=== PATIENT | female | born 1950 | race Two or more races ===

== ENCOUNTER 2020-10-22 20:37 | Emergency (ER) | payer OTHER, MEDICAID ==
[~2020-10-22] VITALS: Ht 149.9 cm; Wt 68.0 kg
[2020-10-22 20:38] VITALS: BP 118/87
--- NOTE | 2020-10-22 20:46 | NUR ---
Pt taken to lobby via w/c. VSS . No acute distress noted.
--- NOTE | 2020-10-22 21:15 | NUR ---
PT TAKEN TO RAD VIA W/C
--- NOTE | 2020-10-22 21:24 | NUR ---
PT RETURNED TO LOBBY AFTER CXR TO A/W BED
--- NOTE | 2020-10-22 21:40 | NUR ---
BIB WHEELCHAIR TO ER BED 8
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
[2020-10-22 21:49] LABS: BASOPHILS # (AUTO) 0.1 K/uL (0.00-0.22); BASOPHILS % (AUTO) 0.8 % (0.0-2.0); EOSINOPHILS % (AUTO) 0.5 % (0.0-4.0); HEMATOCRIT 43.8 % (36-48); HEMOGLOBIN 14.5 g/dL (12.0-16.0); LYMPHOCYTES # (AUTO) 1.5 K/uL (2.5-16.5); LYMPHOCYTES % (AUTO) 19.9 % (20.5-51.1); MEAN CORPUSCULAR HEMOGLOBIN 28 pg (27-31); MEAN CORPUSCULAR HGB CONC 33 g/dL (33-37); MEAN CORPUSCULAR VOLUME 85.7 fL (80-94); MONOCYTES # (AUTO) 0.4 K/uL (0.8-1.0); MONOCYTES % (AUTO) 5.8 % (1.7-9.3); NEUTROPHILS # (AUTO) 5.6 K/uL (1.8-7.7); PLATELET COUNT (AUTO) 231 K/uL (140-450); RED CELL DISTRIBUTION WIDTH 14.9 % (11.6-13.7); WHITE BLOOD COUNT (AUTO) 7.7 K/uL (4.8-10.8)
[2020-10-22 21:55] LABS: APPEARANCE,URINE HAZY (CLEAR); BILIRUBIN,URINE NEGATIVE (NEGATIVE); BLOOD, URINE NEGATIVE (NEGATIVE); COLOR,URINE YELLOW (YELLOW); LEUKOCYTE ESTERASE ,URINE TRACE (NEGATIVE); NITRITE, URINE POSITIVE (NEGATIVE); PH,URINE 6.5 (5.0-9.0); UGLUCOSE NEGATIVE (NEGATIVE)
[2020-10-22 21:57] LABS: RBC,URINE 0-5 /HPF (0-5)
[2020-10-22 22:03] LABS: ALBUMIN 3.7 g/dL (3.4-5.0); ANION GAP 14.4 (8-16); CARBON DIOXIDE 23.6 mmol/L (21-32); CREATININE 0.7 mg/dL (0.6-1.3); TOTAL BILIRUBIN 0.5 mg/dL (0.0-1.0)
[2020-10-22 22:14] LABS: THYROID STIMULATING HORMONE 1.06 uIU/mL (0.34-3.74)
[2020-10-22] MEDS ORDERED: CEPH500C16 PO (22:47)
[2020-10-22 23:03] VITALS: BP 133/77
--- NOTE | 2020-10-22 23:03 | NUR ---
READY FOR DISCHARGE. IS ABLE TO AMBULATE WITHOUT ASSIST AND HAS STEADY GAITPatient discharged with v/s stable. Written and verbal after care instructions given and explained. Patient alert, oriented and verbalized understanding of instructions. Ambulatory with steady gait. All questions addressed prior to discharge. ID band removed. Patient advised to follow up with PMD. Rx of KEFLEX given. Patient educated on indication of medication including possible reaction and side effects. Opportunity to ask questions provided and answered.
== END 2020-10-22 23:20 | disposition home or self-care (01) ==
LOC: MED 20:37
DX: R53.1 Weakness (principal); F15.10 Other stimulant abuse, uncomplicated
CPT/HCPCS: 36415; 71045; 80053; 81001; 83690; 83880; 84443; 84484; 85025; 87086; 93005; 99285

== ENCOUNTER 2020-12-22 23:23 | Emergency (ER) | payer OTHER, MEDICAID ==
[~2020-12-22] VITALS: Ht 149.9 cm; Wt 73.0 kg
[~2020-12-22 23:23] MED LIST: CEPH500C16 PO
[2020-12-22 23:30] VITALS: BP 144/88
--- NOTE | 2020-12-22 23:40 | NUR ---
PT AMBULATED TO BED 5 WITH STEADY GAIT.
--- NOTE | 2020-12-22 23:50 | NUR ---
RECEIVED IN BED 5 WITH C/O RLE PAIN S/P PLACEMENT OF SUTURES TO RIGHT CALF 3 WEEKS AGO. PT DID NOT HACE SUTURES REMOVED. SUTURE LINE RED AND SWOLLEN WITH SLIGHT WARMTH TO TOUCH.
--- NOTE | 2020-12-23 00:05 | NUR ---
ATTEMPTING TO REMOVE SUTURES. PT NOT TOLERATING WELL DUE TO PAIN.
[2020-12-23] MEDS ORDERED: cefTRIAXone 1,000 MG in LIDOCAINE MPF 1% 2.1 ML IM ONE (00:10)
[2020-12-23] MEDS ORDERED: HYDROcodone/APAP 5/325 MG 1 TAB TAB PO ONE (00:10)
[2020-12-23] MEDS ORDERED: CEPH-588 PO (00:16)
[2020-12-23] MEDS ORDERED: IBUP-2218 PO (00:16)
[2020-12-23] MEDS ORDERED: KETO120S5 TP (00:16)
[2020-12-23] MEDS ORDERED: cefTRIAXone 1,000 MG VIAL ONE (00:24)
[2020-12-23] MEDS ORDERED: LIDOCAINE MPF 1% 5 ML ONE (00:25)
[2020-12-23] MEDS ORDERED: BACITRACIN OINT 500 UNITS/GM PKT TP ONE (01:05)
[2020-12-23 01:37] VITALS: BP 144/88
--- NOTE | 2020-12-23 01:37 | NUR ---
Patient discharged with v/s stable. Written and verbal after care instructions given and explained. Patient alert, oriented and verbalized understanding of instructions. Ambulatory with steady gait. All questions addressed prior to discharge. ID band removed. Patient advised to follow up with PMD. Rx of KEFLEX, IBUPROFEN, AND KETOCONAZOLE given. Patient educated on indication of medication including possible reaction and side effects. Opportunity to ask questions provided and answered.
== END 2020-12-23 01:37 | disposition home or self-care (01) ==
LOC: MED 23:23
DX: L03.115 Cellulitis of right lower limb (principal); Z79.899 Other long term (current) drug therapy
CPT/HCPCS: 96372; 99283; J0696; J2001

== ENCOUNTER 2021-04-15 15:22 | Emergency (ER) | payer OTHER, MEDICAID ==
[~2021-04-15] VITALS: Ht 149.9 cm; Wt 65.8 kg
[~2021-04-15 15:22] MED LIST changes: +CEPH-588 PO; -CEPH500C16 PO; +IBUP-2218 PO; +KETO120S5 TP
[2021-04-15 15:33] VITALS: BP 125/77
--- NOTE | 2021-04-15 15:40 | NUR ---
DR OLMOS EXAMINING PT
[2021-04-15] MEDS ORDERED: KETOROLAC 30 MG/ML VIAL IM ONE (15:45)
--- NOTE | 2021-04-15 15:58 | NUR ---
PT TAKEN TO RAD VIA JULIANO
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
--- NOTE | 2021-04-15 16:18 | NUR ---
PT BACK FROM RAD
[2021-04-15] MEDS ORDERED: IBUP-2213 PO (17:18)
[2021-04-15] MEDS ORDERED: ACET-10509 PO (17:18)
[2021-04-15 17:38] VITALS: BP 125/77
--- NOTE | 2021-04-15 17:38 | NUR ---
Patient discharged with v/s stable. Written and verbal after care instructions given and explained. Patient alert, oriented and verbalized understanding of instructions. Ambulatory with steady gait. All questions addressed prior to discharge. ID band removed. Patient advised to follow up with PMD. Rx of IBUPROFEN AND TYLENOL EXTRA STRENGTH given. Patient educated on indication of medication including possible reaction and side effects. Opportunity to ask questions provided and answered.
== END 2021-04-15 17:38 | disposition home or self-care (01) ==
LOC: MED 15:22
DX: S80.01XA Contusion of right knee, initial encounter (principal); S70.01XA Contusion of right hip, initial encounter; W19.XXXA Unspecified fall, initial encounter; Y93.89 Activity, other specified; Y92.512 Supermarket, store or market as the place of occurrence of the external cause; Y99.8 Other external cause status
CPT/HCPCS: 73502; 73560; 96372; 99284; J1885

== ENCOUNTER 2022-05-13 06:36 | Emergency (ER) | payer OTHER, MEDICAID ==
[~2022-05-13] VITALS: Ht 149.9 cm; Wt 72.7 kg
[~2022-05-13 06:36] MED LIST changes: +ACET-10509 PO; +IBUP-2213 PO
[2022-05-13 07:11] VITALS: BP 129/68
--- NOTE | 2022-05-13 07:20 | NUR ---
BIB SELF C/O INTERMITENT RLQ ABDOMINAL PAIN , URINARY BURNING , DIZZINESS, HEADACHE X 3 MONTHS.PMH:DENIES.
--- NOTE | 2022-05-13 07:25 | NUR ---
Patient being evaluated by DR WELLER at bedside.
[2022-05-13] MEDS ORDERED: NACL 0.9% 1,000 ML IV ONE (07:30)
[2022-05-13] MEDS ORDERED: KETOROLAC 30 MG/ML VIAL IVP ONE (07:30)
--- NOTE | 2022-05-13 07:30 | NUR ---
PATIENT AMBULATED TO BED 10.
--- NOTE | 2022-05-13 07:48 | NUR ---
blood drawn from iv and given to ave menchaca
--- NOTE | 2022-05-13 07:54 | NUR ---
pt wheelchair assisted to ct
[2022-05-13 08:22] LABS: APPEARANCE,URINE CLOUDY (CLEAR); BILIRUBIN,URINE NEGATIVE (NEGATIVE); BLOOD, URINE TRACE-I (NEGATIVE); COLOR,URINE YELLOW (YELLOW); LEUKOCYTE ESTERASE ,URINE 1+ (NEGATIVE); NITRITE, URINE NEGATIVE (NEGATIVE); UGLUCOSE NEGATIVE (NEGATIVE)
[2022-05-13 08:24] LABS: BASOPHILS % (AUTO) 0.9 % (0.0-2.0); EOSINOPHILS # (AUTO) 0.2 K/uL (0-0.4); EOSINOPHILS % (AUTO) 2.9 % (0.0-4.0); HEMATOCRIT 39.7 % (36-48); HEMOGLOBIN 13.2 g/dL (12.0-16.0); LYMPHOCYTES # (AUTO) 2.3 K/uL (2.5-16.5); LYMPHOCYTES % (AUTO) 42.3 % (20.5-51.1); MEAN CORPUSCULAR HEMOGLOBIN 29 pg (27-31); MEAN CORPUSCULAR HGB CONC 33 g/dL (33-37); MEAN CORPUSCULAR VOLUME 86.3 fL (80-94); MONOCYTES # (AUTO) 0.5 K/uL (0.8-1.0); MONOCYTES % (AUTO) 9.3 % (1.7-9.3); NEUTROPHILS # (AUTO) 2.5 K/uL (1.8-7.7); NEUTROPHILS % (AUTO) 44.6 % (42.2-75.2); PLATELET COUNT (AUTO) 240 K/uL (140-450); RED CELL DISTRIBUTION WIDTH 14.6 % (11.6-13.7); WHITE BLOOD COUNT (AUTO) 5.5 K/uL (4.8-10.8)
[2022-05-13 08:42] LABS: ANION GAP 12.1 (8-16); CARBON DIOXIDE 25.7 mmol/L (21-32); CREATININE 0.7 mg/dL (0.6-1.3); POTASSIUM 3.8 mmol/L (3.5-5.1); TOTAL BILIRUBIN 0.2 mg/dL (0.0-1.0)
[2022-05-13 08:52] LABS: OTHER CASTS, URINE None Seen /LPF (None Seen); YEAST,URINE Few /HPF (None Seen)
[2022-05-13] MEDS ORDERED: CEPH-588 PO (09:13)
[2022-05-13] MEDS ORDERED: ACET-10509 PO (09:13)
[2022-05-13] MEDS ORDERED: PHEN95TA24 PO (09:13)
--- NOTE | 2022-05-13 09:59 | NUR ---
Patient discharged with v/s stable. Written and verbal after care instructions given and explained. Patient alert, oriented and verbalized understanding of instructions. Ambulatory with steady gait. All questions addressed prior to discharge. ID band removed. Patient advised to follow up with PMD. Rx of keflex, phenazopyridine, tylenol (sent) given. Patient educated on indication of medication including possible reaction and side effects. Opportunity to ask questions provided and answered. ct and labs given, work note given
[2022-05-13 10:01] VITALS: BP 129/68
== END 2022-05-13 10:01 | disposition home or self-care (01) ==
LOC: MED 06:36
DX: N39.0 Urinary tract infection, site not specified (principal)
CPT/HCPCS: 36415; 74176; 80053; 81001; 85025; 87086; 96361; 96374; 99284; J1885; J7030

== ENCOUNTER 2022-07-07 05:18 | Inpatient (IN) | payer OTHER, MEDICAID ==
[~2022-07-07] VITALS: Ht 149.9 cm; Wt 69.9 kg
[~2022-07-07 05:18] MED LIST changes: +PHEN95TA24 PO
[2022-07-07 05:20] VITALS: BP 145/90
[2022-07-07] MEDS ORDERED: MORPHINE SULFATE 4 MG/ML SYR IVP ONE (06:25)
[2022-07-07] MEDS ORDERED: NACL 0.9% 1,000 ML IV ONE (06:25)
[2022-07-07] MEDS ORDERED: cefTRIAXone 1,000 MG VIAL ONE (06:34)
[2022-07-07 07:25] LABS: ALBUMIN 3.3 g/dL (3.4-5.0); CARBON DIOXIDE 25.4 mmol/L (21-32); CREATININE 0.7 mg/dL (0.6-1.3); POTASSIUM 3.4 mmol/L (3.5-5.1); TOTAL BILIRUBIN 0.4 mg/dL (0.0-1.0)
[2022-07-07 07:53] LABS: BASOPHILS # (AUTO) 0.1 K/uL (0.00-0.22); BASOPHILS % (AUTO) 0.7 % (0.0-2.0); EOSINOPHILS # (AUTO) 0.1 K/uL (0-0.4); EOSINOPHILS % (AUTO) 1.1 % (0.0-4.0); HEMATOCRIT 38.8 % (36-48); LYMPHOCYTES # (AUTO) 2.1 K/uL (2.5-16.5); LYMPHOCYTES % (AUTO) 26.4 % (20.5-51.1); MEAN CORPUSCULAR HEMOGLOBIN 29 pg (27-31); MEAN CORPUSCULAR HGB CONC 33 g/dL (33-37); MEAN CORPUSCULAR VOLUME 85.9 fL (80-94); MONOCYTES # (AUTO) 0.5 K/uL (0.8-1.0); MONOCYTES % (AUTO) 6.8 % (1.7-9.3); NEUTROPHILS # (AUTO) 5.2 K/uL (1.8-7.7); PLATELET COUNT (AUTO) 259 K/uL (140-450); RED BLOOD CELL COUNT(AUTO) 4.52 MIL/uL (4.20-5.40); RED CELL DISTRIBUTION WIDTH 14.5 % (11.6-13.7)
[2022-07-07] MEDS ORDERED: ONDANSETRON 4 MG/2 ML VIAL IVP PRN (10:00)
[2022-07-07] MEDS ORDERED: DOCUSATE SODIUM 100 MG GELCAP PO PRN (10:00)
[2022-07-07] MEDS ORDERED: POTASSIUM CHLORIDE 10 MEQ TABER PO PRN (10:00)
[2022-07-07] MEDS ORDERED: MAG SULF 2000 MG/WATER PREMIX 50 ML IV PRN (10:00)
[2022-07-07] MEDS ORDERED: ZOLPIDEM 10 MG TAB PO PRN (10:00)
[2022-07-07] MEDS ORDERED: LORazepam 2 MG/ML VIAL IVP PRN (10:00)
[2022-07-07] MEDS ORDERED: ACETAMINOPHEN 325 MG TAB PO PRN (10:00)
[2022-07-07] MEDS: MORPHINE SULFATE 2 MG/ML SYR IVP PRN ×2 (10:33→17:32)
[2022-07-07] MEDS ORDERED: AMPICILLIN/SULBACTAM 1.5 GM in NACL 0.9% 50 ML IV SCH (12:00)
[2022-07-07] MEDS ORDERED: AMPICILLIN/SULBACTAM 1.5 GM VIAL ONE ×2 (12:46→18:05)
[2022-07-07] MEDS: AMPICILLIN/SULBACTAM 1.5 GM in NACL 0.9% 50 ML IV SCH ×2 (12:47→18:00)
[2022-07-07] MEDS ORDERED: VANCOMYCIN PER PHARMACY MC PRN (17:15)
[2022-07-07] MEDS ORDERED: VANCOMYCIN 1GM/DEXT 5% PREMIX 200 ML IV SCH (18:00)
[2022-07-08] MEDS ORDERED: AMPICILLIN/SULBACTAM 1.5 GM VIAL ONE ×4 (00:28→18:10)
[2022-07-08] MEDS ORDERED: ZOLPIDEM 5 MG TAB ONE (00:29)
[2022-07-08] MEDS: AMPICILLIN/SULBACTAM 1.5 GM in NACL 0.9% 50 ML IV SCH ×5 (06:36→18:21)
[2022-07-08 07:32] LABS: BASOPHILS # (AUTO) 0.1 K/uL (0.00-0.22); BASOPHILS % (AUTO) 0.6 % (0.0-2.0); EOSINOPHILS # (AUTO) 0.1 K/uL (0-0.4); EOSINOPHILS % (AUTO) 0.7 % (0.0-4.0); HEMATOCRIT 39.9 % (36-48); HEMOGLOBIN 13.1 g/dL (12.0-16.0); LYMPHOCYTES # (AUTO) 2.1 K/uL (2.5-16.5); LYMPHOCYTES % (AUTO) 25.6 % (20.5-51.1); MEAN CORPUSCULAR HEMOGLOBIN 29 pg (27-31); MEAN CORPUSCULAR HGB CONC 33 g/dL (33-37); MEAN CORPUSCULAR VOLUME 86.9 fL (80-94); MONOCYTES # (AUTO) 0.7 K/uL (0.8-1.0); MONOCYTES % (AUTO) 8.8 % (1.7-9.3); NEUTROPHILS # (AUTO) 5.4 K/uL (1.8-7.7); NEUTROPHILS % (AUTO) 64.3 % (42.2-75.2); PLATELET COUNT (AUTO) 236 K/uL (140-450); RED BLOOD CELL COUNT(AUTO) 4.59 MIL/uL (4.20-5.40); RED CELL DISTRIBUTION WIDTH 14.5 % (11.6-13.7); WHITE BLOOD COUNT (AUTO) 8.4 K/uL (4.8-10.8)
[2022-07-08 08:14] LABS: ANION GAP 10.6 (8-16); CARBON DIOXIDE 26.5 mmol/L (21-32); CREATININE 0.6 mg/dL (0.6-1.3); POTASSIUM 4.1 mmol/L (3.5-5.1)
[2022-07-08] MEDS: MORPHINE SULFATE 2 MG/ML SYR IVP PRN (20:28)
[2022-07-09] MEDS ORDERED: AMPICILLIN/SULBACTAM 1.5 GM VIAL ONE ×2 (00:23→06:08)
[2022-07-09] MEDS: AMPICILLIN/SULBACTAM 1.5 GM in NACL 0.9% 50 ML IV SCH ×4 (00:28→17:05)
[2022-07-09] MEDS: MORPHINE SULFATE 2 MG/ML SYR IVP PRN ×3 (03:57→18:36)
[2022-07-09 06:21] LABS: BASOPHILS # (AUTO) 0.1 K/uL (0.00-0.22); BASOPHILS % (AUTO) 0.9 % (0.0-2.0); EOSINOPHILS # (AUTO) 0.1 K/uL (0-0.4); EOSINOPHILS % (AUTO) 0.8 % (0.0-4.0); HEMATOCRIT 39.2 % (36-48); HEMOGLOBIN 12.9 g/dL (12.0-16.0); LYMPHOCYTES # (AUTO) 2.7 K/uL (2.5-16.5); LYMPHOCYTES % (AUTO) 32.3 % (20.5-51.1); MEAN CORPUSCULAR HEMOGLOBIN 28 pg (27-31); MEAN CORPUSCULAR HGB CONC 33 g/dL (33-37); MEAN CORPUSCULAR VOLUME 86.4 fL (80-94); MONOCYTES # (AUTO) 0.8 K/uL (0.8-1.0); MONOCYTES % (AUTO) 9.7 % (1.7-9.3); NEUTROPHILS # (AUTO) 4.8 K/uL (1.8-7.7); NEUTROPHILS % (AUTO) 56.3 % (42.2-75.2); PLATELET COUNT (AUTO) 261 K/uL (140-450); RED BLOOD CELL COUNT(AUTO) 4.54 MIL/uL (4.20-5.40); RED CELL DISTRIBUTION WIDTH 14.4 % (11.6-13.7); WHITE BLOOD COUNT (AUTO) 8.5 K/uL (4.8-10.8)
[2022-07-09 07:47] LABS: ANION GAP 14.4 (8-16); CARBON DIOXIDE 26.9 mmol/L (21-32); CREATININE 0.6 mg/dL (0.6-1.3); POTASSIUM 4.3 mmol/L (3.5-5.1)
[2022-07-09 09:00] VITALS: BP 126/61
[2022-07-09] MEDS: VANCOMYCIN HCL 1.25 GM in DEXTROSE 5% 250 ML IV SCH (09:16)
[2022-07-09 17:00] VITALS: BP 117/59
[2022-07-09 20:00] VITALS: BP 96/54
[2022-07-10 04:00] VITALS: BP 102/67
[2022-07-10] MEDS: AMPICILLIN/SULBACTAM 1.5 GM in NACL 0.9% 50 ML IV SCH ×6 (06:05→23:20)
[2022-07-10 08:06] LABS: BASOPHILS # (AUTO) 0.1 K/uL (0.00-0.22); BASOPHILS % (AUTO) 0.7 % (0.0-2.0); EOSINOPHILS # (AUTO) 0.2 K/uL (0-0.4); EOSINOPHILS % (AUTO) 2.3 % (0.0-4.0); HEMATOCRIT 39.9 % (36-48); LYMPHOCYTES % (AUTO) 36.3 % (20.5-51.1); MEAN CORPUSCULAR HEMOGLOBIN 28 pg (27-31); MEAN CORPUSCULAR HGB CONC 33 g/dL (33-37); MEAN CORPUSCULAR VOLUME 87.2 fL (80-94); MONOCYTES # (AUTO) 0.8 K/uL (0.8-1.0); MONOCYTES % (AUTO) 10.2 % (1.7-9.3); NEUTROPHILS # (AUTO) 4.1 K/uL (1.8-7.7); NEUTROPHILS % (AUTO) 50.5 % (42.2-75.2); PLATELET COUNT (AUTO) 275 K/uL (140-450); RED BLOOD CELL COUNT(AUTO) 4.58 MIL/uL (4.20-5.40); RED CELL DISTRIBUTION WIDTH 14.5 % (11.6-13.7); WHITE BLOOD COUNT (AUTO) 8.2 K/uL (4.8-10.8)
[2022-07-10] MEDS: VANCOMYCIN HCL 1.25 GM in DEXTROSE 5% 250 ML IV SCH (08:36)
[2022-07-10 08:42] LABS: ANION GAP 11.8 (8-16); CARBON DIOXIDE 29.6 mmol/L (21-32); CREATININE 0.7 mg/dL (0.6-1.3); POTASSIUM 4.4 mmol/L (3.5-5.1)
[2022-07-10] MEDS ORDERED: IBUP-2218 PO (11:06)
[2022-07-10] MEDS ORDERED: VANC50SO PO (11:06)
[2022-07-10] MEDS ORDERED: AMPI1PDS18 IV (11:06)
[2022-07-10 12:00] VITALS: BP 112/67
[2022-07-10] MEDS: MORPHINE SULFATE 2 MG/ML SYR IVP PRN ×2 (14:23→21:41)
[2022-07-10 21:16] VITALS: BP 110/75
[2022-07-11] MEDS: AMPICILLIN/SULBACTAM 1.5 GM in NACL 0.9% 50 ML IV SCH ×3 (04:47→17:03)
[2022-07-11] MEDS: MORPHINE SULFATE 2 MG/ML SYR IVP PRN ×2 (05:12→11:04)
[2022-07-11 07:05] LABS: BASOPHILS # (AUTO) 0.1 K/uL (0.00-0.22); EOSINOPHILS # (AUTO) 0.1 K/uL (0-0.4); EOSINOPHILS % (AUTO) 1.6 % (0.0-4.0); HEMATOCRIT 41.4 % (36-48); HEMOGLOBIN 13.4 g/dL (12.0-16.0); LYMPHOCYTES # (AUTO) 2.8 K/uL (2.5-16.5); LYMPHOCYTES % (AUTO) 36.9 % (20.5-51.1); MEAN CORPUSCULAR HEMOGLOBIN 28 pg (27-31); MEAN CORPUSCULAR HGB CONC 32 g/dL (33-37); MEAN CORPUSCULAR VOLUME 86.7 fL (80-94); MONOCYTES # (AUTO) 0.6 K/uL (0.8-1.0); MONOCYTES % (AUTO) 7.7 % (1.7-9.3); NEUTROPHILS % (AUTO) 52.8 % (42.2-75.2); PLATELET COUNT (AUTO) 297 K/uL (140-450); RED BLOOD CELL COUNT(AUTO) 4.77 MIL/uL (4.20-5.40); RED CELL DISTRIBUTION WIDTH 14.6 % (11.6-13.7); WHITE BLOOD COUNT (AUTO) 7.5 K/uL (4.8-10.8)
[2022-07-11 07:09] LABS: ANION GAP 10.8 (8-16); CARBON DIOXIDE 27.5 mmol/L (21-32); CREATININE 0.7 mg/dL (0.6-1.3); POTASSIUM 4.3 mmol/L (3.5-5.1)
[2022-07-11 08:00] VITALS: BP 98/72
[2022-07-11] MEDS: VANCOMYCIN HCL 1.25 GM in DEXTROSE 5% 250 ML IV SCH (08:35)
[2022-07-11] MEDS ORDERED: MORPHINE SULFATE 2 MG/ML SYR IVP PRN ×2 (15:30→15:35)
[2022-07-11 16:00] VITALS: BP 137/81
[2022-07-11] MEDS ORDERED: VANCOMYCIN 1,000 MG in DEXTROSE 5% 250 ML IV SCH (19:00)
== END 2022-07-11 21:50 | disposition home or self-care (01) | DRG 603 ==
LOC: MED 05:18 → MTU 09:58
PROVIDERS: ADMIT Family Medicine; ATTEND Family Medicine
PROC: 05HC33Z Insertion of Infusion Device into Left Basilic Vein, Percutaneous Approach (ICD-10-PCS; principal; 2022-07-10)
DX: L03.113 Cellulitis of right upper limb (principal); E44.1 Mild protein-calorie malnutrition; E83.51 Hypocalcemia; Z20.822 Contact with and (suspected) exposure to COVID-19; E87.6 Hypokalemia; S61.451A Open bite of right hand, initial encounter; R74.01 Elevation of levels of liver transaminase levels; Z88.5 Allergy status to narcotic agent; W55.01XA Bitten by cat, initial encounter; Z68.31 Body mass index [BMI] 31.0-31.9, adult
CPT/HCPCS: 36415; 73130; 80048; 80053; 80202; 83605; 83735; 85025; 85651; 86140; 87040; 87081; 96365; 96375; 99291; J0295; J0696; J2270; J2405; J3370; J7060; Q0092

== ENCOUNTER 2022-12-09 08:30 | Emergency (ER) | payer OTHER, MEDICAID ==
[~2022-12-09] VITALS: Ht 149.9 cm; Wt 68.5 kg
[~2022-12-09 08:30] MED LIST changes: +AMPI1PDS18 IV; -CEPH-588 PO; -IBUP-2213 PO; -KETO120S5 TP; -PHEN95TA24 PO; +VANC50SO PO
[2022-12-09 08:41] VITALS: BP 139/75
--- NOTE | 2022-12-09 08:49 | NUR ---
RIGHT FLANK PAIN 8/ ACHING STARTED YESTERDAY MORNING, STATED SHE HAD THIS PROBLEM BEFORE, STATED IT COMES AND GOES UA: COLLECTED
--- NOTE | 2022-12-09 08:59 | NUR ---
AMBULATED TO BED IN NO DISTRESS.
--- NOTE | 2022-12-09 08:59 | NUR ---
The patient's care was reviewed and supervised by DARYN SUMMERS RN.
[2022-12-09 09:17] LABS: BILIRUBIN,URINE NEGATIVE (NEGATIVE); BLOOD, URINE TRACE-I (NEGATIVE); COLOR,URINE YELLOW (YELLOW); LEUKOCYTE ESTERASE ,URINE 3+ (NEGATIVE); NITRITE, URINE POSITIVE (NEGATIVE); UGLUCOSE NEGATIVE (NEGATIVE)
[2022-12-09 09:21] LABS: APPEARANCE,URINE SLIGHTLY HAZY (CLEAR)
[2022-12-09 09:25] LABS: BASOPHILS # (AUTO) 0.1 K/uL (0.00-0.22); BASOPHILS % (AUTO) 0.7 % (0.0-2.0); EOSINOPHILS # (AUTO) 0.1 K/uL (0-0.4); EOSINOPHILS % (AUTO) 1.3 % (0.0-4.0); HEMATOCRIT 42.5 % (36-48); HEMOGLOBIN 14.1 g/dL (12.0-16.0); LYMPHOCYTES # (AUTO) 2.8 K/uL (2.5-16.5); LYMPHOCYTES % (AUTO) 37.8 % (20.5-51.1); MEAN CORPUSCULAR HEMOGLOBIN 28 pg (27-31); MEAN CORPUSCULAR HGB CONC 33 g/dL (33-37); MEAN CORPUSCULAR VOLUME 83.3 fL (80-94); MONOCYTES # (AUTO) 0.5 K/uL (0.8-1.0); MONOCYTES % (AUTO) 6.7 % (1.7-9.3); NEUTROPHILS % (AUTO) 53.5 % (42.2-75.2); PLATELET COUNT (AUTO) 278 K/uL (140-450); WHITE BLOOD COUNT (AUTO) 7.4 K/uL (4.8-10.8)
--- NOTE | 2022-12-09 09:25 | NUR ---
Patient being evaluated by physician at bedside.
[2022-12-09 09:30] LABS: ALBUMIN 3.6 g/dL (3.4-5.0); ANION GAP 9.2 (8-16); CARBON DIOXIDE 27.5 mmol/L (21-32); CREATININE 0.7 mg/dL (0.6-1.3); POTASSIUM 3.7 mmol/L (3.5-5.1); TOTAL BILIRUBIN 0.5 mg/dL (0.0-1.0)
[2022-12-09] MEDS ORDERED: MORPHINE SULFATE 4 MG/ML SYR IM ONE (09:30)
[2022-12-09] MEDS ORDERED: ONDANSETRON 4 MG ODT PO ONE (09:30)
[2022-12-09] MEDS ORDERED: CEPH-588 PO (11:30)
[2022-12-09] MEDS ORDERED: ACET-10509 PO (11:30)
--- NOTE | 2022-12-09 11:42 | NUR ---
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
[2022-12-09 11:43] VITALS: BP 110/56
--- NOTE | 2022-12-09 11:43 | NUR ---
Patient discharged with v/s stable. Written and verbal after care instructions given. Patient alert, oriented and verbalized understanding of instructions. Ambulatory with steady gait. All questions addressed prior to discharge. ID band removed. Patient advised to follow up with PMD. Rx of Tylenol and Keflex given. Opportunity to ask questions provided and answered.
== END 2022-12-09 11:43 | disposition home or self-care (01) ==
LOC: MED 08:30
DX: N39.0 Urinary tract infection, site not specified (principal); N12 Tubulo-interstitial nephritis, not specified as acute or chronic; Z79.899 Other long term (current) drug therapy
CPT/HCPCS: 36415; 74176; 80053; 81001; 83690; 85025; 87086; 93005; 96372; 99285; J2270; Q0162

== ENCOUNTER 2023-01-03 12:47 | Emergency (ER) | payer OTHER, MEDICAID ==
[~2023-01-03] VITALS: Ht 149.9 cm; Wt 68.9 kg
[~2023-01-03 12:47] MED LIST changes: +CEPH-588 PO
[2023-01-03 13:16] VITALS: BP 140/88
[2023-01-03] MEDS ORDERED: ONDANSETRON 4 MG/2 ML VIAL IVP ONE (14:35)
[2023-01-03] MEDS ORDERED: MORPHINE SULFATE 4 MG/ML SYR IVP ONE (14:35)
[2023-01-03 15:30] LABS: BASOPHILS # (AUTO) 0.1 K/uL (0.00-0.22); BASOPHILS % (AUTO) 0.8 % (0.0-2.0); EOSINOPHILS # (AUTO) 0.1 K/uL (0-0.4); EOSINOPHILS % (AUTO) 1.4 % (0.0-4.0); HEMATOCRIT 40.1 % (36-48); HEMOGLOBIN 13.5 g/dL (12.0-16.0); LYMPHOCYTES # (AUTO) 2.5 K/uL (2.5-16.5); LYMPHOCYTES % (AUTO) 37.4 % (20.5-51.1); MEAN CORPUSCULAR HEMOGLOBIN 28 pg (27-31); MEAN CORPUSCULAR HGB CONC 34 g/dL (33-37); MEAN CORPUSCULAR VOLUME 83.1 fL (80-94); MONOCYTES # (AUTO) 0.4 K/uL (0.8-1.0); MONOCYTES % (AUTO) 6.7 % (1.7-9.3); NEUTROPHILS # (AUTO) 3.6 K/uL (1.8-7.7); NEUTROPHILS % (AUTO) 53.7 % (42.2-75.2); PLATELET COUNT (AUTO) 238 K/uL (140-450); RED BLOOD CELL COUNT(AUTO) 4.82 MIL/uL (4.20-5.40); RED CELL DISTRIBUTION WIDTH 14.9 % (11.6-13.7); WHITE BLOOD COUNT (AUTO) 6.7 K/uL (4.8-10.8)
[2023-01-03 15:50] LABS: ALBUMIN 3.5 g/dL (3.4-5.0); ANION GAP 12.5 (8-16); CARBON DIOXIDE 27.1 mmol/L (21-32); CREATININE 0.6 mg/dL (0.6-1.3); POTASSIUM 3.6 mmol/L (3.5-5.1); TOTAL BILIRUBIN 0.4 mg/dL (0.0-1.0)
--- NOTE | 2023-01-03 16:30 | NUR ---
PT AT CT WITH RADIOLOGY
[2023-01-03 18:11] LABS: APPEARANCE,URINE CLEAR (CLEAR); BILIRUBIN,URINE NEGATIVE (NEGATIVE); BLOOD, URINE NEGATIVE (NEGATIVE); COLOR,URINE YELLOW (YELLOW); LEUKOCYTE ESTERASE ,URINE NEGATIVE (NEGATIVE); NITRITE, URINE NEGATIVE (NEGATIVE); PH,URINE 6.5 (5.0-9.0); UGLUCOSE NEGATIVE (NEGATIVE)
[2023-01-03] MEDS ORDERED: IBUP-2213 PO (18:14)
--- NOTE | 2023-01-03 18:43 | NUR ---
IV removed, catheter intact and site benign. Applied folded 4x4 gauze and tape to stop bleeding.
[2023-01-03 18:47] VITALS: BP 135/84
== END 2023-01-03 18:47 | disposition home or self-care (01) ==
LOC: MED 12:47
DX: K57.30 Diverticulosis of large intestine without perforation or abscess without bleeding (principal); M54.9 Dorsalgia, unspecified; F17.210 Nicotine dependence, cigarettes, uncomplicated; Z90.710 Acquired absence of both cervix and uterus; Z98.890 Other specified postprocedural states; Z79.899 Other long term (current) drug therapy; Z79.2 Long term (current) use of antibiotics; Z79.1 Long term (current) use of non-steroidal anti-inflammatories (NSAID); Z88.5 Allergy status to narcotic agent
CPT/HCPCS: 36415; 74177; 80053; 81003; 83690; 85025; 93005; 96374; 96375; 99285; J2270; J2405; Q9967

== ENCOUNTER 2023-10-31 22:23 | Emergency (ER) | payer OTHER ==
[~2023-10-31] VITALS: Ht 149.9 cm; Wt 68.0 kg
[~2023-10-31 22:23] MED LIST changes: +FURO-572 PO; +IBUP-2213 PO
[2023-10-31 22:30] VITALS: BP 140/77; PULSE 97; RESP 18; TEMP 98.4; O2SAT 98
[2023-10-31] MEDS ORDERED: VANCOMYCIN 1,000 MG VIAL ONE (23:42)
[2023-10-31 23:45] LABS: BASOPHILS # (AUTO) 0.1 K/uL (0.00-0.22); BASOPHILS % (AUTO) 0.6 % (0.0-2.0); EOSINOPHILS # (AUTO) 0.2 K/uL (0-0.4); EOSINOPHILS % (AUTO) 1.4 % (0.0-4.0); HEMATOCRIT 39.7 % (36-48); HEMOGLOBIN 13.2 g/dL (12.0-16.0); LYMPHOCYTES # (AUTO) 3.3 K/uL (2.5-16.5); LYMPHOCYTES % (AUTO) 30.1 % (20.5-51.1); MEAN CORPUSCULAR HEMOGLOBIN 28 pg (27-31); MEAN CORPUSCULAR HGB CONC 33 g/dL (33-37); MEAN CORPUSCULAR VOLUME 84.8 fL (80-94); MONOCYTES # (AUTO) 0.9 K/uL (0.8-1.0); MONOCYTES % (AUTO) 8.5 % (1.7-9.3); NEUTROPHILS # (AUTO) 6.4 K/uL (1.8-7.7); NEUTROPHILS % (AUTO) 59.4 % (42.2-75.2); PLATELET COUNT (AUTO) 266 K/uL (140-450); RED BLOOD CELL COUNT(AUTO) 4.69 MIL/uL (4.20-5.40); RED CELL DISTRIBUTION WIDTH 14.7 % (11.6-13.7); WHITE BLOOD COUNT (AUTO) 10.8 K/uL (4.8-10.8)
[2023-10-31] MEDS: VANCOMYCIN 1,000 MG in DEXTROSE 5% 250 ML IV ONE (23:54)
[2023-10-31] MEDS: NACL 0.9% 2,000 ML IV ONE (23:55)
[2023-10-31 23:56] LABS: ANION GAP 13.6 (8-16); CALCIUM 8.6 mg/dL (8.5-10.1); CARBON DIOXIDE 26.8 mmol/L (21-32); CHLORIDE 105 mmol/L (98-107); CREATININE 0.9 mg/dL (0.6-1.3); GLUCOSE 108 mg/dL (74-106); POTASSIUM 3.4 mmol/L (3.5-5.1); SODIUM SERUM 142 mmol/L (136-145); UREA NITROGEN, BLOOD 20 mg/dL (7-18)
[2023-11-01 00:01] LABS: ALBUMIN 3.2 g/dL (3.4-5.0); BILIRUBIN,DIRECT 0.1 mg/dL (0.0-0.3); TOTAL BILIRUBIN 0.3 mg/dL (0.0-1.0)
[2023-11-01 00:12] LABS: LACTIC ACID 2.2 mmol/L (0.4-2.0)
[2023-11-01] MEDS: KETOROLAC 30 MG/ML VIAL IVP ONE (00:57)
[2023-11-01 04:03] VITALS: BP 114/61; PULSE 79; RESP 16; TEMP 98.3; O2SAT 96
== END 2023-11-01 04:29 | disposition home or self-care (01) ==
LOC: MED 22:23
DX: A41.9 Sepsis, unspecified organism (principal); N73.2 Unspecified parametritis and pelvic cellulitis; Z20.822 Contact with and (suspected) exposure to COVID-19; Z79.1 Long term (current) use of non-steroidal anti-inflammatories (NSAID); Z79.899 Other long term (current) drug therapy; Z88.5 Allergy status to narcotic agent
CPT/HCPCS: 36415; 80048; 80076; 83605; 85025; 87040; 87426; 96365; 96375; 99291; J1885; J3370; J7030

== ENCOUNTER 2023-12-20 18:33 | Emergency (ER) | payer OTHER ==
[~2023-12-20] VITALS: Ht 149.9 cm; Wt 68.0 kg
[2023-12-20 19:02] VITALS: BP 153/94; PULSE 90; RESP 16; TEMP 97.7; O2SAT 99
[2023-12-20 20:18] LABS: BASOPHILS # (AUTO) 0.1 K/uL (0.00-0.22); BASOPHILS % (AUTO) 0.7 % (0.0-2.0); EOSINOPHILS # (AUTO) 0.1 K/uL (0-0.4); EOSINOPHILS % (AUTO) 1.7 % (0.0-4.0); HEMATOCRIT 42.7 % (36-48); HEMOGLOBIN 14.4 g/dL (12.0-16.0); LYMPHOCYTES # (AUTO) 2.2 K/uL (2.5-16.5); MEAN CORPUSCULAR HEMOGLOBIN 29 pg (27-31); MEAN CORPUSCULAR HGB CONC 34 g/dL (33-37); MEAN CORPUSCULAR VOLUME 85.4 fL (80-94); MONOCYTES # (AUTO) 0.5 K/uL (0.8-1.0); NEUTROPHILS # (AUTO) 4.4 K/uL (1.8-7.7); NEUTROPHILS % (AUTO) 60.6 % (42.2-75.2); PLATELET COUNT (AUTO) 274 K/uL (140-450); RED CELL DISTRIBUTION WIDTH 14.9 % (11.6-13.7); WHITE BLOOD COUNT (AUTO) 7.2 K/uL (4.8-10.8)
[2023-12-20] MEDS ORDERED: HYDROcodone/APAP 5/325 MG 1 TAB TAB ONE (20:33)
[2023-12-20 20:36] LABS: ALANINE AMINOTRANSFERASE 40 U/L (12-78); ALBUMIN 3.9 g/dL (3.4-5.0); ALKALINE PHOSPHATASE 131 U/L (50-136); ANION GAP 11.2 (8-16); ASPARTATE AMINOTRANSFERASE 30 U/L (15-37); CALCIUM 9.1 mg/dL (8.5-10.1); CARBON DIOXIDE 27.8 mmol/L (21-32); CHLORIDE 98 mmol/L (98-107); CREATININE 0.7 mg/dL (0.6-1.3); GLUCOSE 102 mg/dL (74-106); SODIUM SERUM 133 mmol/L (136-145); TOTAL BILIRUBIN 0.5 mg/dL (0.0-1.0); TOTAL PROTEIN, SERUM 7.9 g/dL (6.4-8.2); UREA NITROGEN, BLOOD 13 mg/dL (7-18)
[2023-12-20] MEDS: HYDROcodone/APAP 5/325 MG 1 TAB TAB PO ONE (20:47)
[2023-12-20] MEDS: KETOROLAC 30 MG/ML VIAL IM ONE (20:51)
[2023-12-20 21:03] LABS: APPEARANCE,URINE CLEAR (CLEAR); BILIRUBIN,URINE NEGATIVE (NEGATIVE); BLOOD, URINE NEGATIVE (NEGATIVE); COLOR,URINE YELLOW (YELLOW); LEUKOCYTE ESTERASE ,URINE NEGATIVE (NEGATIVE); NITRITE, URINE NEGATIVE (NEGATIVE); PROTEIN,URINE NEGATIVE (NEGATIVE); UGLUCOSE NEGATIVE (NEGATIVE)
[2023-12-20 21:30] VITALS: BP 147/90; PULSE 88; RESP 16; TEMP 98; O2SAT 99
[2023-12-20] MEDS ORDERED: IBUP-2213 PO (22:28)
[2023-12-20] MEDS ORDERED: DOCU-299 PO (22:28)
[2023-12-20] MEDS ORDERED: ACET-8905 PO (22:28)
== END 2023-12-20 22:34 | disposition home or self-care (01) ==
LOC: MED 18:33
DX: R10.31 Right lower quadrant pain (principal); R11.0 Nausea; Z79.1 Long term (current) use of non-steroidal anti-inflammatories (NSAID); Z79.899 Other long term (current) drug therapy; Z88.0 Allergy status to penicillin; Z88.5 Allergy status to narcotic agent
CPT/HCPCS: 36415; 76856; 80053; 81003; 85025; 93971; 96372; 99285; J1885

== ENCOUNTER 2024-04-01 05:52 | Emergency (ER) | payer OTHER ==
[~2024-04-01] VITALS: Ht 149.9 cm; Wt 53.5 kg
[~2024-04-01 05:52] MED LIST changes: -ACET-10509 PO; +ACET-8905 PO; +ACET500T99 PO; +DOCU-299 PO
[2024-04-01 05:59] VITALS: BP 161/90; PULSE 91; RESP 17; TEMP 98.5; O2SAT 97
[2024-04-01 06:08] VITALS: O2SAT 97
--- NOTE | 2024-04-01 06:09 | NUR ---
PT AMBULATED TO ER BED 7.
--- NOTE | 2024-04-01 07:20 | NUR ---
recieve report from amy cesar. pt in bed resting no complaints at this time. pt stated she wanted to call family to inform them.
--- NOTE | 2024-04-01 07:35 | NUR ---
number provided by the pt was unable to reach. pt offered the wireless phone to try another #. unable to to reach.
[2024-04-01 07:36] LABS: FLU A ANTIGEN negative (NEGATIVE); FLU B ANTIGEN NEGATIVE (NEGATIVE)
--- NOTE | 2024-04-01 07:45 | NUR ---
new phone # given by the pt was tried to reach unable to talk but left a message to call [facility] for information. pt stated the # given was her daughter.
[2024-04-01] MEDS: IBUPROFEN 400 MG TAB PO ONE (08:04)
[2024-04-01 08:28] LABS: BILIRUBIN,URINE NEGATIVE (NEGATIVE); BLOOD, URINE NEGATIVE (NEGATIVE); COLOR,URINE YELLOW (YELLOW); LEUKOCYTE ESTERASE ,URINE 1+ (NEGATIVE); NITRITE, URINE POSITIVE (NEGATIVE); PH,URINE 6.5 (5.0-9.0); PROTEIN,URINE NEGATIVE (NEGATIVE); UGLUCOSE NEGATIVE (NEGATIVE); UROBILINOGEN,URINE 0.2 EU/dL (0.2 - 1)
[2024-04-01 08:37] LABS: APPEARANCE,URINE SLIGHTLY HAZY (CLEAR); BACTERIA,URINE 1+ /HPF (None Seen); RBC,URINE 0-5 /HPF (0-5); SQUAMOUS EPITHELIAL CELL,UR 0-3 (FEW) /LPF (0-3 (FEW))
[2024-04-01] MEDS ORDERED: SULF-59 PO (08:50)
[2024-04-01] MEDS ORDERED: IBUP-1842 PO (08:50)
--- NOTE | 2024-04-01 08:50 | NUR ---
scarlet haider called to provide uber ride for pt. provided pt address as stated by pt going to [id number]
[2024-04-01 09:00] VITALS: BP 140/76; PULSE 84; RESP 16; TEMP 36.94740; O2SAT 98
--- NOTE | 2024-04-01 09:00 | NUR ---
Patient discharged with v/s stable. Written and verbal after care instructions given and explained. Patient alert, oriented and verbalized understanding of instructions. Ambulatory with steady gait. All questions addressed prior to discharge. ID band removed. Patient advised to follow up with PMD. Rx of motrin, bactrim tablet given. Patient educated on indication of medication including possible reaction and side effects. Opportunity to ask questions provided and answered. pt will be going home via [facility].
== END 2024-04-01 09:00 | disposition home or self-care (01) ==
LOC: MED 05:52
DX: U07.1 COVID-19 (principal); J06.9 Acute upper respiratory infection, unspecified; N39.0 Urinary tract infection, site not specified; Z79.899 Other long term (current) drug therapy; Z88.0 Allergy status to penicillin; Z88.5 Allergy status to narcotic agent
CPT/HCPCS: 71045; 81001; 87086; 87186; 99284